=== PATIENT | female | born 1985 ===

== ENCOUNTER 2024-04-01 18:49 | Emergency (ER) | payer BC, SELFPAY ==
[2024-04-01 19:02] VITALS: BP 146/73; PULSE 68; RESP 16; TEMP 36.9; O2SAT 98
[2024-04-01] MEDS: Lidocaine/Epinephri/Tetracaine Topical Gel 3 ML (19:23)
[2024-04-01 20:35] VITALS: BP 108/69; PULSE 77; RESP 18; TEMP 36.8; O2SAT 96
--- NOTE | 2024-04-02 20:08 | W.ED.GENAD ---
Discharge Plan Disposition Patient Disposition: Home Condition: Stable Discharge Details Clinical Impression: H/O laceration repair Primary Care Provider: Unknown,Unknown ED Provider: Marilu Massey Home Meds and New Rx's Prescriptions: Continued sertraline [Zoloft] 25 mg tablet 25 mg PO DAILY Discharge Instructions Additional Instructions: Suture removal in 10 to 12 days Keep clean and dry Allow to air dry in 72 hours Do not submerge in water After 24 hours it is safe to shower Ibuprofen and Tylenol as needed for pain change dressing daily and apply bacitracin or Neosporin return with spreading redness, fever, worsening pain Discharge Data Discharge Date/Time-TO BE ENTERED AT DEPARTURE: 04/01/24 20:33 HPI General Date/Time Provider Initiated Documentation: 04/01/24 20:02. HPI Narrative: 38-year-old female presenting with laceration to left index finger Tuesday for cutting avocado while camping. Event occurred prior to arrival. Last tetanus was in 2018. Denies chance of or strength or sensation change. Denies history of coagulopathy. Related Data Home Medications Medication Instructions Recorded Confirmed sertraline 25 mg tablet (Zoloft) 25 mg PO DAILY 04/01/24 04/01/24 Allergies Allergy/AdvReac Type Severity Reaction Status Date / Time Sulfa (Sulfonamide Allergy Mild Hives Verified 04/01/24 19:01 Antibiotics) General Stated Complaint: Laceration ARTIE: 4 Exam Narrative Exam Narrative: Left index finger at this proximal aspect, approximately three-quarter inch laceration, superficial, flexion extension intact, neurovascularly intact. Course Vital Signs Vital signs: Vital Signs Temperature 36.9 C 04/01/24 19:02 Pulse 68 04/01/24 19:02 Respiratory Rate 16 04/01/24 19:02 Blood Pressure 146/73 H 04/01/24 19:02 Pulse Oximetry 98 04/01/24 19:02 Temperature 36.8 C 04/01/24 20:35 Pulse 77 04/01/24 20:35 Respiratory Rate 18 04/01/24 20:35 Respiratory Effort Normal 04/01/24 19:03 Blood Pressure 108/69 04/01/24 20:35 Pulse Oximetry 96 04/01/24 20:35 Pain Level 0 04/01/24 20:35 Procedures Laceration Laceration 1: Site: upper extremity Side (If applicable): left Size (cm): 2 Description: flap Depth: simple, single layer Local Anesthetic: Lidocaine 1% Amount of anesthesia used (mL): 3 Pre-repair: wound explored and wound margins revised Skin layer closed with: other Size (cm): 5-0 Number of sutures: 3 Technique: other (vertical mattress) Medical Decision Making 38-year-old female presenting with laceration to left index finger. Given that patient types frequently and uses her fingers extensively at work, will suture instead of including. Wound is relatively superficial. To assist in healing and use, 3 vertical mattress sutures were placed which patient tolerated without incident. Tetanus is up-to-date 2018. Patient is neurovascularly intact. She is encouraged to have the sutures removed between 10 and 12 days dressings applied. care was precautions reviewed and return discussed. Quality:[facility] Health Related Social Needs: No Data to Display [facility] All Active Problems (Updated 04/01/24 @ 20:04 by ALEJANDRA Mosley) H/O laceration repair (Acute) Social History Smoking/Tobacco Use Status: Never Smoking risk assessment performed?: Yes Alcohol Intake: current Alcohol Intake frequency: a few times a month Drug use: Never Housing: house Do you feel safe at home: Yes Do you feel safe in your relationship?: Yes
== END 2024-04-01 20:33 | disposition home or self-care (01) ==
PROVIDERS: Emergency Provider Physician Assistant
DX: S61.211A Laceration without foreign body of left index finger without damage to nail, initial encounter (principal); W26.0XXA Contact with knife, initial encounter
CPT/HCPCS: 12001